=== PATIENT | female | born 1955 | race Caucasian/White ===

== ENCOUNTER 2017-09-17 12:25 | Emergency (ER) | payer OTHER ==
[~2017-09-17] VITALS: Ht 162.6 cm; Wt 72.6 kg
[2017-09-17 12:35] VITALS: BP 148/87
--- NOTE | 2017-09-17 12:50 | NUR ---
PATIENT IS A 62 YO FEMALE BIB P FOR PRE BOOK EXAM.
--- NOTE | 2017-09-17 13:05 | NUR ---
THIS PATIENT IS AWAKE AND ALERT NO ACUTE DISTRESS, CLAIMS HX OF DEPRESSION, AND HTN, DENIES INJURY OR MEDICAL EMERGENCY AT THIS TIME.
[2017-09-17 13:36] VITALS: BP 148/87
--- NOTE | 2017-09-17 13:37 | NUR ---
Patient discharged with v/s stable. Written and verbal after care instructions given and explained. Patient verbalized understanding. Police with in custody. All questions addressed prior to discharge. Advised to follow up with PMD.
== END 2017-09-17 13:37 ==
LOC: MED 12:25
DX: Z02.89 Encounter for other administrative examinations (principal); I10 Essential (primary) hypertension; V47.5XXA Car driver injured in collision with fixed or stationary object in traffic accident, initial encounter; Y93.89 Activity, other specified; Y92.89 Other specified places as the place of occurrence of the external cause; Y99.8 Other external cause status
CPT/HCPCS: 99283